=== PATIENT | female | born 1985 | race Caucasian/White ===

== ENCOUNTER 2017-02-07 18:41 | Emergency (ER) | payer SELFPAY ==
[2017-02-07 19:01] VITALS: BP 110/58; PULSE 83; TEMP 98.5; BMI 26.6
--- NOTE | 2017-02-07 21:40 | PDOC ---
History of Present Illness - General Chief Complaint: Injury Stated Complaint: FOOT INJURY Time Seen by Provider: 02/07/17 20:15 History Source: Patient Exam Limitations: No Limitations - History of Present Illness Initial Comments: 02/07/17 21:39 CHIEF COMPLAINT: Right medial foot pain HISTORY OF PRESENT ILLNESS: Patient is a 31-year-old female states she was walking down the steps and inverted right foot now with pain to right medial foot lateral border of large toe. There is no erythema, edema or deformity. No bruising. Denies any other injury. 02/07/17 23:27 Occurred: reports: yesterday Severity: Yes: mild Lower Extremity Pain Location: right: foot Method of Injury: Yes: twisted Modifying Factors: improves with: None Lower Ext. Injury Location - Specific Injury Location Foot: right foot pain Past History - Past Medical History Allergies/Adverse Reactions: Allergies Allergy/AdvReac Type Severity Reaction Status Date / Time No Known Allergies Allergy Verified 02/07/17 18:57 Home Medications: Ambulatory Orders Ibuprofen 1,600 mg PO ASDIR 02/07/17 Ibuprofen [Motrin -] 600 mg PO TID #21 tablet 02/07/17 Asthma: Yes - Surgical History Cholecystectomy: Yes - Immunization History Immunization Up to Date: Yes - Suicide/Smoking/Psychosocial Hx Smoking History: Never smoked Have you smoked in the past 12 months: No Information on smoking cessation initiated: No Hx Alcohol Use: No Drug/Substance Use Hx: No Substance Use Type: None Review of Systems - Review of Systems Constitutional: No: Symptoms Reported HEENTM: No: Symptoms Reported Respiratory: No: Symptoms reported Musculoskeletal: Yes: Joint Pain. No: Symptoms Reported, Joint Swelling, Muscle Pain, Muscle Weakness Integumentary: No: Symptoms Reported, Bruising, Erythema Neurological: No: Symptoms reported, Paresthesia, Tingling, Tremors All Other Systems: Reviewed and Negative *Physical Exam - Vital Signs Last Vital Signs Temp Pulse Resp BP Pulse Ox 98.5 F 83 16 110/58 100 02/07/17 18:57 02/07/17 18:57 02/07/17 18:57 02/07/17 18:57 02/07/17 18:57 - Physical Exam General Appearance: Yes: Appropriately Dressed. No: Apparent Distress Respiratory/Chest: positive: Lungs Clear, Normal Breath Sounds Cardiovascular: positive: Regular Rhythm, Regular Rate Musculoskeletal: positive: Normal Inspection, Other (PAIN) Extremity: positive: Normal Capillary Refill, Normal Inspection, Normal Range of Motion, Pelvis Stable. negative: Tender, Swelling, Erythema, Inflammation Integumentary: positive: Normal Color, Dry. negative: Erythema, Swelling, Ecchymosis, Bruising Neurologic: positive: Alert, Normal Mood/Affect ED Treatment Course - RADIOLOGY Radiology Studies Ordered: Category Date Time Status FOOT-RIGHT [RAD] Stat Radiology 02/07/17 19:57 Completed Medical Decision Making - Medical Decision Making 02/07/17 23:28 A/P: Patient here for evaluation of right foot pain after stepping down on step and twisting foot. There is no visible injury, x-rays are negative for acute fracture however patient with pain 10 out of 10. Patient to take Motrin as needed for pain, surgical shoe given to patient explained to patient is just a soft tissue injury and will resolve after several days. If pain persists to follow-up with orthopedics. I discussed the physical exam findings, ancillary test results and final diagnoses with the patient. I answered all of the patient's questions. The patient was satisfied with the care received and felt comfortable with the discharge plan and treatment plan. The patient will call to arrange follow-up and will return to the Emergency Department with any new, persistent or worsening symptoms. 02/07/17 23:29 *DC/Admit/Observation/Transfer Diagnosis at time of Disposition: Foot injury Qualifiers: Encounter type: initial encounter Laterality: right Qualified Code(s): S99.921A - Unspecified injury of right foot, initial encounter - Discharge Dispostion Disposition: HOME Condition at time of disposition: Good Admit: No - Prescriptions Prescriptions: Ibuprofen [Motrin -] 600 mg PO TID #21 tablet - Referrals Referrals: Yaw Rebollar MD [Staff Physician] - - Patient Instructions Additional Instructions: 1. Please return to the emergency department with any redness, swelling, increased pain, or any other concerns. 2. Keep shoe on for comfort 3. Please follow up in the office of Dr. Rebollar in one week if pain persists 4. No weightbearing 5. Ice and elevate when at rest. 6. Motrin for pain, do not exceed 600 mg every 8 hours - Post Discharge Activity Forms/Work/School Notes: Back to Work
== END 2017-02-07 21:51 | disposition home or self-care (01) ==
LOC: JERFT 18:41
DX: S99.821A Other specified injuries of right foot, initial encounter (principal); W10.8XXA Fall (on) (from) other stairs and steps, initial encounter; Y93.89 Activity, other specified; Y92.89 Other specified places as the place of occurrence of the external cause
CPT/HCPCS: 73630-TC-RT; 99281-25